=== PATIENT | male | born 1995 | race Hispanic/Latino ===

== ENCOUNTER 2022-05-28 13:06 | Emergency (ER) | payer SELFPAY ==
[~2022-05-28] VITALS: Ht 162.6 cm; Wt 74.8 kg
[2022-05-28 13:56] LABS: BASOPHILS # (AUTO) 0.1 (0.0-0.1); BASOPHILS % 0.5 % (0.0-1.0); EOSINOPHILS # (AUTO) 0.1 (0.0-0.4); EOSINOPHILS % 0.7 % (0.0-6.0); HEMATOCRIT 44.2 % (38.2-49.6); HEMOGLOBIN 15.7 g/dL (14.0-18.0); LYMPHOCYTES # (AUTO) 2.8 (1.0-3.2); LYMPHOCYTES % 24.3 % (18.0-39.1); MEAN CORPUSCULAR HEMOGLOBIN 31.6 pg (28-32); MEAN CORPUSCULAR HGB CONC 35.5 g/dL (31-35); MEAN CORPUSCULAR VOLUME 88.9 fL (81-99); MONOCYTES # (AUTO) 0.8 (0.2-0.8); MONOCYTES % 6.5 % (4.4-11.3); NEUTROPHILS # (AUTO) 7.8 (2.1-6.9); NEUTROPHILS % 67.4 % (38.7-80.0); PLATELET COUNT 288 x10e3/uL (140-360); RED BLOOD COUNT 4.97 x10e6/uL (4.3-5.7)
[2022-05-28 14:26] LABS: ALBUMIN 4.6 g/dL (3.5-5.0); ALBUMIN/GLOBULIN RATIO 1.4 (0.8-2.0); CALCIUM 9.6 mg/dL (8.4-10.2); CREATININE, SERUM 0.92 mg/dL (0.72-1.25)
[2022-05-28 14:46] LABS: FREE THYROXINE INDEX 2.1992 (1.4-3.8)
== END 2022-05-28 15:00 | disposition home or self-care (01) ==
LOC: ER 13:12
DX: R00.2 Palpitations (principal)
CPT/HCPCS: 36415; 71045; 80053; 84436; 84443; 84479; 84484; 85025; 93005; 99282